=== PATIENT | male | born 1985 | race Two or more races ===

== ENCOUNTER 2022-01-20 13:07 | Emergency (ER) | payer OTHER ==
[~2022-01-20] VITALS: Ht 167.6 cm; Wt 63.5 kg
--- NOTE | 2022-01-20 14:30 | NUR ---
DR BALLARD AT BEDSIDE FOR EVAL.
[2022-01-20] MEDS ORDERED: OLANZAPINE 5 MG TABLET ONE (14:34)
[2022-01-20] MEDS: OLANZAPINE 5 MG TABLET PO ONE (14:36)
--- NOTE | 2022-01-20 14:42 | NUR ---
COVID SWAB COLLECTED AND SENT TO LAB
[2022-01-20 14:52] LABS: BASOPHILS # (AUTO) 0.1 K/uL (0.0-0.2); BASOPHILS % (AUTO) 0.6 % (0.0-2.0); EOSINOPHILS % (AUTO) 0.3 % (0.0-6.0); HEMATOCRIT 43 % (39-51); HEMOGLOBIN 14.6 g/dL (13.5-17.5); LYMPHOCYTES # (AUTO) 2.8 K/uL (0.8-4.8); MEAN CORPUSCULAR HGB CONC 34 g/dl (31.0-36.0); MEAN CORPUSCULAR VOLUME 89 fL (80-96); MONOCYTES # (AUTO) 1.1 K/uL (0.1-1.30); MONOCYTES % (AUTO) 9.6 % (2.0-12.0); NEUTROPHILS # (AUTO) 7.3 K/uL (1.8-8.9); NEUTROPHILS % (AUTO) 64.5 % (43.0-81.0); PLATELET COUNT (AUTO) 329 K/uL (150-450); RED BLOOD CELL COUNT(AUTO) 4.83 MIL/uL (4.5-6.0); WHITE BLOOD COUNT (AUTO) 11.3 K/uL (4.3-11.0)
[2022-01-20 15:13] LABS: CALCIUM, SERUM 9.2 mg/dL (8.5-10.1); CARBON DIOXIDE 25 mmol/L (21-32); CHLORIDE 100 mmol/L (98-107); CREATININE 1.1 mg/dL (0.6-1.3); GLUCOSE 121 mg/dL (74-106); POTASSIUM 3.1 mmol/L (3.5-5.1); SODIUM SERUM 138 mmol/L (136-145); UREA NITROGEN, BLOOD 10 mg/dL (7-18)
[2022-01-20 15:19] LABS: ALANINE AMINOTRANSFERASE 66 U/L (12-78); ALBUMIN 4.3 g/dL (3.4-5.0); ALCOHOL, BLOOD < 3 mg/dL (0-0); ALKALINE PHOSPHATASE 84 U/L (46-116); ASPARTATE AMINOTRANSFERASE 54 U/L (15-37); BILIRUBIN,DIRECT 0.2 mg/dL (0.0-0.2); BILIRUBIN,TOTAL 0.9 mg/dL (0.2-1.0); TOTAL PROTEIN, SERUM 7.8 g/dL (6.4-8.2)
[2022-01-20 15:33] LABS: ACETAMINOPHEN < 2 ug/ml (10-30)
[2022-01-20] MEDS ORDERED: MIDAZOLAM HCL 5 MG/5ML VIAL ONE (15:43)
[2022-01-20] MEDS: MIDAZOLAM HCL 2 MG/2ML VIAL IM ONE ×2 (15:48→15:59)
[2022-01-20 17:03] LABS: BILIRUBIN,URINE NEGATIVE (NEGATIVE); COLOR,URINE YELLOW (YELLOW); LEUKOCYTE ESTERASE ,URINE NEGATIVE (NEGATIVE); NITRITE, URINE NEGATIVE (NEGATIVE); PH,URINE 6.5 (5.0-8.0); PROTEIN,URINE 100 mg/dl (NEGATIVE); UGLUCOSE NEGATIVE (NEGATIVE); UROBILINOGEN,URINE 0.2 EU/dL (0.2)
[2022-01-20 17:55] LABS: BACTERIA,URINE RARE /HPF (None Seen); MUCUS,URINE Few /LPF (None Seen); SQUAMOUS EPITHELIAL CELL,UR 0-2 /HPF (None Seen); WBC,URINE 0-2 /HPF (0-3)
[2022-01-20 19:47] VITALS: BP 147/88
--- NOTE | 2022-01-20 23:40 | NUR ---
FAXED CLINICALS TO [facility]
--- NOTE | 2022-01-21 00:38 | NUR ---
JERALD AT [facility] INTAKE PATIENT GOT ACCEPTED BY DR FENG AT [facility] # FOR REPORT: [phone]
--- NOTE | 2022-01-21 00:48 | NUR ---
[facility] ETA: 30 MIN
--- NOTE | 2022-01-21 01:41 | NUR ---
[facility] AT BED SIDE TO [employer] REVIEWER THE PT
--- NOTE | 2022-01-21 02:02 | NUR ---
PT WAS PICKED UP BY [facility] AND TRANSFERRED TO [facility] IN STABLE CONDITION. BELONGINGS WERE PICKED UP
== END 2022-01-21 02:05 ==
LOC: ER 13:10
DX: F23 Brief psychotic disorder (principal); R45.851 Suicidal ideations; F19.10 Other psychoactive substance abuse, uncomplicated; Z20.822 Contact with and (suspected) exposure to COVID-19; Z59.00 Homelessness unspecified
CPT/HCPCS: 99285; 96372; 70450; 85025; 80048; 80076; 81001; 36415; 87426; 80143; 80320; 80307; J2250; C9803; G0480